=== PATIENT | male | born 1960 | race Caucasian/White ===

== ENCOUNTER → 2017-07-08 | Day surgery (SDC) | payer OTHER ==
[~2017-07-08] VITALS: Ht 180.3 cm; Wt 95.3 kg
--- NOTE | 2017-07-08 12:23 | Operative Report ---
Operative/Inv Procedure Report Surgery Date: 07/08/17 Name of Procedure: Cystoscopy, left retrograde pyelogram, left ureteroscopy, left distal ureteral biopsy, insertion of left double-J ureteral stent Pre-Operative Diagnosis: Microscopic hematuria with left hydroureteronephrosis Post-Operative Diagnosis: Same Estimated Blood Loss: scant Surgeon/Mud Boss: Sascha GARCIA,Amadou Mora Anesthesia: laryngeal mask airway Drains: 24 cm 6 Brazilian left double-J ureteral stent Specimens: Urine culture, left ureteral cytology, left ureteral biopsies Complications: None Condition: Stable Operative Indication: Microscopic hematuria with CT IVP showing left hydroureteronephrosis down to the level of the distal ureter. The ureter beyond this point was collapsed and nonvisualized Operative/Procedure Note Note: The patient was taken to the cystoscopy room and identified. He is placed in supine position on the cystoscopy table. A timeout was executed appropriately with the patient awake. Gen. anesthesia was induced via LMA. He was then placed in the dorsolithotomy position and prepped and draped in usual fashion for cystoscopy. A surgical pause was executed appropriately. Fluoroscopy images taken with a marker on the left side of the abdomen to confirm the correct side of the surgery as well as a correct orientation of the fluoroscopy image. The 22 Brazilian cystoscope sheath was placed into the bladder under direct vision using the 30 lens after dilating the urethral meatus with Armstrong sounds to 24 Brazilian. The anterior urethra was otherwise normal. Prostatic urethra showed mild hypertrophy with low-grade partial bladder outlet obstruction. Upon entering the bladder cystoscopy was performed. The bladder was mildly trabeculated but otherwise normal. There was no evidence of bladder tumor or stone. Ureteral orifices were normal in location and appearance. A 5 Brazilian open-ended catheter was then placed through the cystoscope into the bladder and into the left distal ureter. A left retrograde pyelogram was performed. The left ureter was dilated down to a point about 3 cm above the bladder. At this point in the taper to a much narrow ureter. The transition area was without filling defects. At this point a guidewire was placed through the open-ended catheter was advanced up the level of the kidney without any difficulty. The open-ended catheter was removed as was the cystoscope. The safety guidewire remained in place. The short rigid ureteroscope was then advanced through the urethra into the bladder into the left ureter. The ureteral mucosa distal to the transition area appeared normal. The ureteroscope was advanced above the transition area in the ureteral mucosa appeared normal in that area as well. The ureter proximal to the transition area was dilated. The area of transition there was some minimal erythema of the ureteral mucosa. A barbotage of this area was done for cytology. Using biopsy forceps 3 biopsies of the area were taken. Attempt was made to fulgurate the biopsy sites and there was no significant bleeding noted. At this point the ureteroscope was removed. The cystoscope was back loaded onto the guidewire. An open-ended catheter was placed over the wire and the wire removed. Some contrast was injected to outline the left renal collecting system. Guidewire was placed back through the open-ended catheter which was removed. Under visual fluoroscopic control a 24 cm 6 Brazilian left double-J ureteral stent was placed. Once the stent was in the correct position the guidewire was removed. Fluoroscopy confirmed the proximal and the stent coiled in the left renal pelvis and the distal end coiled in the bladder. A long suture was left attached the distal end of the stent exiting the urethra. Patient tolerated the procedure well and as completion was taken recovery room in stable condition. Findings: Narrowed area of the left ureter about 3 cm above the bladder. Mild proximal dilation of the ureter. Normal ureteral mucosa above and below this area. Minimal erythema of the mucosa at the transition area no ureteral mass visual Discharge Disposition: PACU
--- NOTE | 2017-07-09 08:48 | RADIOLOGY REPORT ---
EXAMINATION: CR ABDOMEN/INTRAOPERATIVE FLUOROSCOPY CLINICAL INDICATION: Left ureteroscopy and laser lithotripsy with stent placement. COMPARISON: CT scan of the abdomen and pelvis dated 03/04/2017. TECHNIQUE/FINDINGS: Fluoroscopic equipment was dedicated to the operating room for the performance of an intraoperative procedure. Several (8) spot films were acquired and are archived in PACS. Please refer to operative notes for procedural detail. FLUOROSCOPY TIME: 0.4 minutes. IMPRESSION: Administrative dictation for intraoperative fluoroscopy and image archiving in PACS. Please refer to operative notes for details.
== END ==
LOC: STS 00:48
DX: R31.29 Other microscopic hematuria (principal); N13.5 Crossing vessel and stricture of ureter without hydronephrosis; N13.30 Unspecified hydronephrosis; N32.89 Other specified disorders of bladder; N40.0 Benign prostatic hyperplasia without lower urinary tract symptoms
CPT/HCPCS: 74018; 87086; C2617; J0131; J0690; J2250; J3250